=== PATIENT | female | born 1980 | race Two or more races ===

== ENCOUNTER 2022-10-27 06:40 | Day surgery (SDC) | payer OTHER ==
[~2022-10-27] VITALS: Ht 167.6 cm; Wt 65.8 kg
[~2022-10-27 06:40] MED LIST: INTEGRA PLUS C1 EACH PO
[2022-10-27] MEDS ORDERED: COLACE100 MG PO (12:55)
[2022-10-27] MEDS ORDERED: ULTRACET PO (12:55)
[2022-10-27] MEDS ORDERED: EC-NAPROSYN375 MG PO (12:56)
[2022-10-27] MEDS ORDERED: PEPCID AC20 MG PO (13:01)
== END 2022-10-27 16:00 | disposition home or self-care (01) ==
LOC: CIR.AMB 06:40
PROVIDERS: ATTEND Obstetrics & Gynecology
DX: R10.2 Pelvic and perineal pain (principal); N70.11 Chronic salpingitis; N73.6 Female pelvic peritoneal adhesions (postinfective); N80.203 Endometriosis of bilateral fallopian tubes, unspecified depth; Z91.013 Allergy to seafood; Z20.822 Contact with and (suspected) exposure to COVID-19